=== PATIENT | male | born 1980 | race Two or more races ===

== ENCOUNTER 2023-10-12 22:36 | Emergency (ER) | payer OTHER ==
[~2023-10-12] VITALS: Ht 175.3 cm; Wt 77.1 kg
[2023-10-12] MEDS ORDERED: KETOROLAC TROMETHAMINE 30 MG VIAL IV ONE (23:30)
[2023-10-12] MEDS ORDERED: 0.9 % SODIUM CHLORIDE 1,000 ML IV SCH (23:30)
[2023-10-12] MEDS ORDERED: KETOROLAC TROMETHAMINE 30 MG VIAL ONE (23:38)
[2023-10-12 23:58] LABS: HEMOGLOBIN 14.4 g/dL (13-16.00); MEAN CELL VOLUME 88.4 fL (80.0-100.00); MEAN CORPUSCULAR HEMOGLOBIN 30.3 pg (27.00-32.0); MEAN CORPUSCULAR HGB CONC 34.3 g/dl (32.0-36.0); PLATELET COUNT 244 K/uL (150-450); RED BLOOD COUNT 4.75 M/uL (4.00-6.00); RED CELL DISTRIBUTION WIDTH 13.9 % (11.5-14.5)
[2023-10-13 00:13] LABS: CALCIUM 9.5 mg/dL (8.5-10.1); CREATININE SERUM 1.49 mg/dL (0.70-1.30); POTASSIUM 3.89 mEq/L (3.5-5.1)
[2023-10-13] MEDS ORDERED: MEPERIDINE HCL/PF 50 MG/ML VIAL IM STA (00:48)
[2023-10-13] MEDS ORDERED: PROMETHAZINE HCL 50 MG/ML AMPUL IM STA (00:49)
[2023-10-13 00:56] LABS: URINE APPEARANCE Turbid; URINE BILIRRUBIN Negative (NEGATIVE); URINE BLOOD Large; URINE COLOR Yellow; URINE GLUCOSE Negative (NEGATIVE); URINE LEUKOCYTE Negative; URINE NITRATE Negative; URINE PROTEIN 30 (NEGATIVE)
[2023-10-13 00:59] LABS: URINE BACTERIA 289.7 uL (0.0-1933); URINE EPITHELIAL CELLS 3.8 uL (0.0-38.8); URINE WBC 16.6 uL (0.0-23.2)
[2023-10-13] MEDS ORDERED: PROMETHAZINE HCL 50 MG/ML AMPUL IM ONE (01:09)
== END 2023-10-13 07:44 | disposition home or self-care (01) ==
LOC: ER 22:37
PROVIDERS: Emergency Medicine
DX: N20.2 Calculus of kidney with calculus of ureter (principal)